=== PATIENT | female | born 1970 | race American Indian/Alaskan Native ===

== ENCOUNTER 2019-07-20 16:13 | Emergency (ER) | payer OTHER ==
--- NOTE | 2019-07-20 16:28 | Event Note ---
ED Screening Note ED Screening Note: Neha Lara - the other day told she had a herniated disc L3/4 now today she has patchy parasthesia las L5 surg in the past This initial assessment/diagnostic orders/clinical plan/treatment(s) is/are subject to change based on patients health status, clinical progression and re- assessment by fellow clinical providers in the ED. Further treatment and workup at subsequent clinical providers discretion. Patient/guardian urged not to elope from the ED as their condition may be serious if not clinically assessed and managed. Initial orders include: labs ct may need MRI
[2019-07-20 17:46] LABS: Basophils # (Auto) 0.1 K/mm3 (0.0-0.1); Eosinophils # (Auto) 0.2 K/mm3 (0.0-0.4); Eosinophils % (Auto) 3.8 % (0.0-4.3); Hematocrit 41.4 % (30.3-42.9); Hemoglobin 13.8 gm/dl (10.1-14.3); Lymphocytes # (Auto) 1.9 K/mm3 (1.2-5.4); Lymphocytes % (Auto) 34.9 % (13.4-35.0); Mean Corpuscular HGB Conc 33 % (30-34); Mean Corpuscular Volume 80 fl (79-97); Monocytes # (Auto) 0.4 K/mm3 (0.0-0.8); Monocytes % (Auto) 8.3 % (0.0-7.3); Platelet Count 336 K/mm3 (140-440); Red Blood Count 5.16 M/mm3 (3.65-5.03); Red Cell Distribution Width 13.5 % (13.2-15.2)
[2019-07-20 18:12] LABS: Alanine Aminotransferase 16 units/L (7-56); Albumin 3.7 g/dL (3.9-5); BUN/Creatinine Ratio 15; Blood Urea Nitrogen 12 mg/dL (7-17); Calcium 9.3 mg/dL (8.4-10.2); Hemolysis Index 13
[2019-07-20 18:19] LABS: Bilirubin,Urine NEG (Negative); Blood,Urine SM (Negative); Color,Urine Yellow (Yellow); Mucus,Urine 1+ /HPF; Urobilinogen,Urine < 2.0 mg/dL (<2.0)
[2019-07-20 18:20] LABS: HCG Qualitative,Urine Negative (Negative)
[2019-07-20 18:21] LABS: Protein,Urine >500 mg/dL (Negative)
[2019-07-20] MEDS ORDERED: MORPHINE 4 MG/1 ML INJ IV ONE (18:34)
[2019-07-20] MEDS ORDERED: KETOROLAC 60 MG/2 ML INJ IVP ONE (18:34)
[2019-07-20] MEDS ORDERED: methylPREDNISolone Sod Succinate 125 MG/2 ML INJ IV ONE (18:34)
[2019-07-20] MEDS ORDERED: ONDANSETRON 4 MG/2 ML INJ IV ONE (18:34)
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
[2019-07-20 23:02] VITALS: BP 175/93
== END 2019-07-20 21:50 | disposition home or self-care (01) ==
LOC: ED 16:13
DX: M54.16 Radiculopathy, lumbar region (principal); I10 Essential (primary) hypertension; E11.9 Type 2 diabetes mellitus without complications; E11.22 Type 2 diabetes mellitus with diabetic chronic kidney disease; I12.9 Hypertensive chronic kidney disease with stage 1 through stage 4 chronic kidney disease, or unspecified chronic kidney disease; N18.1 Chronic kidney disease, stage 1; Z88.0 Allergy status to penicillin
CPT/HCPCS: 36415; 80053; 81001; 81025; 85025; 96374; 96375; 99283; J1885; J2270; J2930

== ENCOUNTER 2020-07-18 14:14 | Emergency (ER) | payer OTHER ==
--- NOTE | 2020-07-18 14:21 | Event Note ---
ED Screening Note ED Screening Note: obese, htn, dm co palpitations and cp no sob no fever or chills HR inc in triage w low grade temp bg elevated this AM per pt This initial assessment/diagnostic orders/clinical plan/treatment(s) is/are subject to change based on patients health status, clinical progression and re- assessment by fellow clinical providers in the ED. Further treatment and workup at subsequent clinical providers discretion. Patient/guardian urged not to elope from the ED as their condition may be serious if not clinically assessed and managed. Initial orders include: labs ekg
--- NOTE | 2020-07-18 14:59 | XRay Report ---
CHEST 2 VIEWS INDICATION / CLINICAL INFORMATION: Dysrhythmia. COMPARISON: None available. FINDINGS: SUPPORT DEVICES: None. HEART / MEDIASTINUM: No significant abnormality. LUNGS / PLEURA: No significant pulmonary or pleural abnormality. No pneumothorax. ADDITIONAL FINDINGS: No significant additional findings. IMPRESSION: 1. No acute findings. Signer Name: Zachariah Tyler MD Signed: 07/18/2020 2:54 PM Workstation Name: [id number]
[2020-07-18 16:00] LABS: Basophils # (Auto) 0.1 K/mm3 (0.0-0.1); Basophils % (Auto) 0.9 % (0.0-1.8); Eosinophils # (Auto) 0.2 K/mm3 (0.0-0.4); Eosinophils % (Auto) 2.8 % (0.0-4.3); Lymphocytes # (Auto) 2.6 K/mm3 (1.2-5.4); Lymphocytes % (Auto) 33.9 % (13.4-35.0); Mean Corpuscular HGB Conc 35 % (30-34); Mean Corpuscular Volume 82 fl (79-97); Monocytes # (Auto) 0.6 K/mm3 (0.0-0.8); Monocytes % (Auto) 7.7 % (0.0-7.3); Platelet Count 401 K/mm3 (140-440); Red Blood Count 4.53 M/mm3 (3.65-5.03); Red Cell Distribution Width 13.4 % (13.2-15.2)
[2020-07-18 16:25] LABS: Alanine Aminotransferase 21 units/L (7-56); Albumin 4.2 g/dL (3.9-5); BUN/Creatinine Ratio 13; Blood Urea Nitrogen 14 mg/dL (7-17); Calcium 9.8 mg/dL (8.4-10.2); Hemolysis Index 15
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
[2020-07-18] MEDS ORDERED: SODIUM CHLORIDE 0.9% 1000 ML 1,000 ML IV ONE (21:57)
--- NOTE | 2020-07-18 23:11 | Cat Scan Report ---
CTA CHEST WITH IV CONTRAST INDICATION: elevated d dimer CONTRAST: 100 cc Omnipaque 350 IV COMPARISON: Chest x-ray tonight Three-plane MIP reconstructions were produced. All CT scans at this location are performed using CT d ose reduction for ALARA by means of automated exposure control. NOTE: Resolution is decreased and artifact is introduced by the patient's size. FINDINGS: No significant axillary or chest wall abnormalities are seen. Visualized portions of the up per abdomen show fatty infiltration of the liver. No mediastinal or hilar masses are seen. No pleural effusions are noted. No pneumothorax or pneumomediastinum are seen. No endobronchial lesions are obv ious. Lung ricks are clear. Aorta shows no aneurysmal dilatation or evidence of dissection. 2. Right renal arteries are noted. Adequate opacification of the pulmonary arterial system was achieved. I do not see convincing evidenc e of pulmonary thromboembolism. IMPRESSION: Negative study Signer Name: Malcolm Shelton MD Signed: 07/18/2020 11:07 PM Workstation Name: [id number]
[2020-07-19 00:37] VITALS: BP 135/78
== END 2020-07-19 00:37 | disposition home or self-care (01) ==
LOC: ED 14:14
DX: R00.2 Palpitations (principal); I10 Essential (primary) hypertension; E11.9 Type 2 diabetes mellitus without complications; Z98.890 Other specified postprocedural states; Z79.899 Other long term (current) drug therapy; Z88.0 Allergy status to penicillin
CPT/HCPCS: 36415; 71046; 71275; 80053; 84443; 84484; 85025; 85379; 93005; 96360; 99284; J7030; Q9967